=== PATIENT | female | born 1985 | race Caucasian/White ===

== ENCOUNTER → 2020-07-07 | Outpatient (CLI) | payer OTHER ==
[~2020-07-07] MED LIST: IBUPROFEN600 MG PO
== END ==
LOC: HEART 5 12:02
DX: J45.50 Severe persistent asthma, uncomplicated (principal); J30.9 Allergic rhinitis, unspecified
CPT/HCPCS: 94060; 95012

== ENCOUNTER 2020-12-28 22:19 | Inpatient (IN) | payer OTHER ==
[~2020-12-28] VITALS: Ht 165.1 cm; Wt 100.7 kg
[2020-12-28 23:05] LABS: HEMOGLOBIN 11.3 gm/dl (12.3-15.3); RED BLOOD COUNT 3.52 M/UL (4.00-5.10); WHITE BLOOD COUNT 12.5 K/UL (4.5-11.0)
[2020-12-28 23:39] LABS: BUN/CREATININE RATIO 11 (0-10)
[2020-12-29] MEDS ORDERED: PRENATAL 19 CH1 EAC1 PO (14:39)
[2020-12-29] MEDS ORDERED: VENTOLIN/PROVENT2 MG PO (14:42)
[2020-12-30] MEDS ORDERED: SINGULAIR10 MG PO (17:03)
== END 2020-12-30 19:49 | disposition home or self-care (01) | DRG 831 ==
LOC: ER1 22:19 → CDU 12-29 02:31 → OB 12-29 02:31
PROVIDERS: Family Medicine; ADMIT Obstetrics & Gynecology
DX: O99.612 Diseases of the digestive system complicating pregnancy, second trimester (principal); J96.01 Acute respiratory failure with hypoxia; J45.51 Severe persistent asthma with (acute) exacerbation; J30.9 Allergic rhinitis, unspecified; O99.012 Anemia complicating pregnancy, second trimester; D64.9 Anemia, unspecified; O99.212 Obesity complicating pregnancy, second trimester; Z20.822 Contact with and (suspected) exposure to COVID-19; E66.9 Obesity, unspecified; O99.282 Endocrine, nutritional and metabolic diseases complicating pregnancy, second trimester; E28.2 Polycystic ovarian syndrome; O13.2 Gestational [pregnancy-induced] hypertension without significant proteinuria, second trimester; O99.332 Smoking (tobacco) complicating pregnancy, second trimester; F17.210 Nicotine dependence, cigarettes, uncomplicated; Z3A.25 25 weeks gestation of pregnancy; Z79.52 Long term (current) use of systemic steroids; Z79.899 Other long term (current) drug therapy; O99.512 Diseases of the respiratory system complicating pregnancy, second trimester
CPT/HCPCS: 71045; 80053; 81001; 82728; 85025; 86140; 87081; 87880; 93970; 94640; 94664; 94760; 96374; 99285; C9113; J2405; J2930; Q9967; U0002

== ENCOUNTER 2021-03-18 16:37 | Inpatient (IN) | payer OTHER ==
[~2021-03-18] VITALS: Ht 165.1 cm; Wt 103.0 kg
[~2021-03-18 16:37] MED LIST changes: +PRENATAL 19 CH1 EAC1 PO; +SINGULAIR10 MG PO; +VENTOLIN/PROVENT2 MG PO
[2021-03-18 18:23] LABS: HEMOGLOBIN 10.6 gm/dl (12.3-15.3); RED BLOOD COUNT 3.46 M/UL (4.00-5.10); WHITE BLOOD COUNT 9.2 K/UL (4.5-11.0)
[2021-03-19] MEDS ORDERED: IBUPROFEN600 MG PO (14:10)
[2021-03-19] MEDS ORDERED: DOCUSATE SODIU100 MG PO (14:10)
[2021-03-19] MEDS ORDERED: HYDROCODON-ACE1 EAC4 PO (14:10)
[2021-03-20 04:12] LABS: HEMOGLOBIN 9.7 gm/dl (12.3-15.3)
== END 2021-03-20 18:07 | disposition home or self-care (01) | DRG 788 ==
LOC: GENOP 16:37 → OB 17:04
PROVIDERS: Obstetrics & Gynecology; ADMIT Obstetrics & Gynecology
PROC: 10907ZC Drainage of Amniotic Fluid, Therapeutic from Products of Conception, Via Natural or Artificial Opening (ICD-10-PCS; 2021-03-19)
PROC: 10D00Z1 Extraction of Products of Conception, Low, Open Approach (ICD-10-PCS; principal; 2021-03-19 15:25)
DX: O13.4 Gestational [pregnancy-induced] hypertension without significant proteinuria, complicating childbirth (principal); O99.52 Diseases of the respiratory system complicating childbirth; J45.909 Unspecified asthma, uncomplicated; F43.10 Post-traumatic stress disorder, unspecified; O99.334 Smoking (tobacco) complicating childbirth; O99.214 Obesity complicating childbirth; Z20.822 Contact with and (suspected) exposure to COVID-19; E66.9 Obesity, unspecified; O99.344 Other mental disorders complicating childbirth; F17.200 Nicotine dependence, unspecified, uncomplicated; O76 Abnormality in fetal heart rate and rhythm complicating labor and delivery; Z3A.37 37 weeks gestation of pregnancy; Z37.0 Single live birth
CPT/HCPCS: 36415; 81001; 82800; 85014; 85018; 85025; 90715; C9113; J0690; J1170; J2250; J2405; J2590; J2704; J3010; J7120